=== PATIENT | female | born 1990 | race Caucasian/White ===

== ENCOUNTER 2020-08-03 00:37 | Emergency (ER) | payer BC ==
[2020-08-03 00:47] VITALS: TEMP 98.7
[2020-08-03 01:49] LABS: Basophils # (A) 0.1 k/uL (0-0.2); Basophils % (A) 1 %; Eosinophils # (A) 0.3 k/uL (0-0.7); Eosinophils % (A) 3 %; HCT 40.9 % (34.0-46.0); Lymphocytes # (A) 2.7 k/uL (1.0-4.8); Lymphocytes % (A) 26 %; MCH 25.4 pg (25.0-35.0); MCHC 31.7 g/dL (31.0-37.0); MCV 80.2 fL (80.0-100.0); Mean Platelet Volume 7.1; Monocytes # (A) 0.4 k/uL (0-1.0); Monocytes % (A) 4 %; Neutrophils # (A) 6.9 k/uL (1.3-7.7); Neutrophils % (A) 66 %; Platelet Count 348 k/uL (150-450); RDW 13.9 % (11.5-15.5); WBC 10.6 k/uL (3.8-10.6)
[2020-08-03 01:54] LABS: Appearance,Urine Cloudy (Clear); Bacteria,Urine Few /hpf; Bilirubin,Urine Negative (Negative); Blood,Urine Negative (Negative); Color,Urine Yellow; Glucose,Urine (UA) Negative (Negative); Ketones,Urine 1+ (Negative); Leukocyte Esterase,Urine Small (Negative); Mucus,Urine Many /hpf; Nitrite,Urine Positive (Negative); Protein,Urine 1+ (Negative); RBC,Urine 6 /hpf (0-5); Squamous Epithelial Cell,Urine 23 /hpf (0-4); Urobilinogen,Urine <2.0 mg/dL (<2.0); WBC,Urine 10 /hpf (0-5)
[2020-08-03 02:02] LABS: ALT 19 U/L (4-34); AST 25 U/L (14-36); African American GFR (CKD) >90 (>60 ml/min/1.73 sqM); Albumin 4.3 g/dL (3.5-5.0); Alkaline Phosphatase 66 U/L (38-126); Anion Gap 8 mmol/L; Blood Urea Nitrogen 11 mg/dL (7-17); Calcium 9.5 mg/dL (8.4-10.2); Carbon Dioxide 25 mmol/L (22-30); Chloride 104 mmol/L (98-107); Glucose 92 mg/dL (74-99); Lipase 43 U/L (23-300); Non-African American GFR(CKD) >90 (>60 ml/min/1.73 sqM); Sodium 137 mmol/L (137-145); Total Bilirubin 0.5 mg/dL (0.2-1.3); Total Protein 7.4 g/dL (6.3-8.2)
--- NOTE | 2020-08-03 02:58 | CT ---
EXAM: CT Abdomen and Pelvis Without Intravenous Contrast CLINICAL HISTORY: ITS.REASON CT Reason: RLQ pain TECHNIQUE: Axial computed tomography images of the abdomen and pelvis without intravenous contrast. CTDI is 10.77 mGy and DLP is 565.7 mGy-cm. This CT exam was performed using one or more of the following dose reduction techniques: automated exposure control, adjustment of the mA and/or kV according to patient size, and/or use of iterative reconstruction technique. COMPARISON: No relevant prior studies available. FINDINGS: Limitations: Evaluation of the abdominal viscera is limited without contrast. Lung bases: No acute findings. ABDOMEN: Liver: Unremarkable. Gallbladder and bile ducts: Dense material in the gallbladder. Pancreas: Unremarkable. Spleen: Unremarkable. Adrenals: Unremarkable. Kidneys and ureters: No obstructing stones. No hydronephrosis. Stomach and bowel: Mild wall thickening of the right colon with mild pericolic stranding raising possibility of colitis. Fluid and air in the small bowel, query ileus or enteritis. PELVIS: Appendix: Visualized portions of the appendix appear normal caliber. Mild adjacent stranding/fluid, may be related to colonic or pelvic process. Bladder: Mildly thickened underdistended bladder, may be reactive. Reproductive: Ill-defined adnexal low attenuation, measuring up to 4 cm on the right, may be ovarian. There is pelvic stranding and dense free fluid, concerning for hemorrhagic or proteinaceous material. ABDOMEN and PELVIS: Intraperitoneal space: No free air Bones/joints: L5 pars defects. Soft tissues: Small fat-containing umbilical hernia. Vasculature: Unremarkable. Lymph nodes: Unremarkable. IMPRESSION: 1. Ill-defined adnexal low attenuation with pelvic stranding and dense free fluid, concerning for hemorrhagic or proteinaceous material. Correlate clinically to exclude possibility of ruptured ectopic . Differential considerations include ruptured hemorrhagic cyst, PID/TOA, or other etiology. Ultrasound may be considered if indicated. 2. Wall thickening of the right colon with mild pericolic stranding raising possibility of colitis. 3. Mildly thickened underdistended bladder, may be reactive.
[2020-08-03] MEDS ORDERED: cefTRIAXone IN SWFI 1,000 MG/10 ML SYRINGE IVP STA (03:10)
--- NOTE | 2020-08-03 03:13 | ED ---
Abdominal Pain HPI - General Chief Complaint: Abdominal Pain Stated Complaint: Abdominal Pain Time Seen by Provider: 08/03/20 01:06 Source: patient Limitations: no limitations - History of Present Illness Initial Comments: 30-year-old male patient presents to the emergency department today for evaluation of right lower quadrant abdominal pain. Patient states she was taking a shower this evening the pain started suddenly. States she had sharp stabbing pain to the right lower abdomen. Patient states she did take some ibuprofen and Tylenol took a nap. When she woke up the pain was still present though better. Denies any recent fever or chills. Denies hematuria, dysuria, urinary frequency, urinary urgency. Denies any abnormal vaginal bleeding or discharge. Denies chance of . Denies concern for sexually transmitted infections. Denies any history of abdominal surgeries. Patient denies any recent rash, cough, shortness of breath, chest pain, diarrhea, constipation, back pain, numbness, tingling, dizziness, weakness, headache, visual changes, or any other complaints. - Related Data Previous Rx's Medication Instructions Recorded Cephalexin [Keflex] 500 mg PO Q6H #40 cap 08/03/20 Allergies Allergy/AdvReac Type Severity Reaction Status Date / Time No Known Allergies Allergy Verified 08/03/20 00:47 Review of Systems ROS Statement: Those systems with pertinent positive or pertinent negative responses have been documented in the HPI. ROS Other: All systems not noted in ROS Statement are negative. Past Medical History Past Medical History: No Reported History History of Any Multi-Drug Resistant Organisms: None Reported Past Surgical History: No Surgical Hx Reported Past Psychological History: ADD/ADHD Smoking Status: Never smoker Past Alcohol Use History: Rare Past Drug Use History: Marijuana General Exam Limitations: no limitations General appearance: alert, in no apparent distress, other (This is a well- developed, well-nourished adult female patient in no acute distress. Vital signs upon presentation are temperature 98.7F, pulse 71, respirations 18, blood pressure 125/71, pulse ox 97% on room air.) Eye exam: Present: normal appearance, PERRL, EOMI. Absent: scleral icterus, conjunctival injection, periorbital swelling ENT exam: Present: normal exam, normal oropharynx, mucous membranes moist Respiratory exam: Present: normal lung sounds bilaterally. Absent: respiratory distress, wheezes, rales, rhonchi, stridor Cardiovascular Exam: Present: regular rate, normal rhythm, normal heart sounds. Absent: systolic murmur, diastolic murmur, rubs, gallop, clicks GI/Abdominal exam: Present: soft, tenderness (Right lower quadrant), normal bowel sounds. Absent: distended, guarding, rebound, rigid Back exam: Present: normal inspection. Absent: CVA tenderness (R), CVA tender ness (L) Neurological exam: Present: alert, oriented X3, CN II-XII intact Psychiatric exam: Present: normal affect, normal mood Skin exam: Present: warm, dry, intact, normal color. Absent: rash Course Vital Signs 08/03/20 08/03/20 00:44 03:27 Temperature 98.7 F Pulse Rate 71 78 Respiratory 18 16 Rate Blood Pressure 125/71 120/72 O2 Sat by Pulse 97 97 Oximetry Medical Decision Making - Medical Decision Making 30 year-old female patient presents for sudden onset right lower quadrant abdominal pain. Physical examination reveals right lower quadrant abdominal tenderness. Labs reviewed and revealed normal white blood cell count. Evidence for UTI. CT abdomen pelvis obtained and showed hyperdense fluid in the pelvis with differentials including ruptured hemorrhagic cyst, TOA/PID, or ruptured ectopic. Patient has negative hCG, normal WBC count, no fever so most likely diagnosis is ruptured hemorrhagic cyst. She also adamantly denied concern for STI, states she is in monogamous relationship. She also had evidence for colitis. We started on antibiotics for UTI. Given pain medication. 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 Return parameters were discussed in detail. She is instructed to return especially develops any fever, worsening pain, or vomiting unable to hold down medications. She verbalizes understanding and agrees with this plan. Case discussed with my attending Dr. Urrutia. - Lab Data Result diagrams: 08/03/20 01:35 08/03/20 01:35 Lab Results 08/03/20 08/03/20 08/03/20 Range/Units 01:35 01:35 01:35 WBC 10.6 (3.8-10.6) k/uL RBC 5.10 (3.80-5.40) m/uL Hgb 13.0 (11.4-16.0) gm/dL Hct 40.9 (34.0-46.0) % MCV 80.2 (80.0-100.0) fL MCH 25.4 (25.0-35.0) pg MCHC 31.7 (31.0-37.0) g/dL RDW 13.9 (11.5-15.5) % Plt Count 348 (150-450) k/uL MPV 7.1 Neutrophils % 66 % Lymphocytes % 26 % Monocytes % 4 % Eosinophils % 3 % Basophils % 1 % Neutrophils # 6.9 (1.3-7.7) k/uL Lymphocytes # 2.7 (1.0-4.8) k/uL Monocytes # 0.4 (0-1.0) k/uL Eosinophils # 0.3 (0-0.7) k/uL Basophils # 0.1 (0-0.2) k/uL Sodium 137 (137-145) mmol/L Potassium 4.0 (3.5-5.1) mmol/L Chloride 104 (98-107) mmol/L Carbon Dioxide 25 (22-30) mmol/L Anion Gap 8 mmol/L BUN 11 (7-17) mg/dL Creatinine 0.61 (0.52-1.04) mg/dL Est GFR (CKD-EPI)AfAm >90 (>60 ml/min/1.73 sqM) Est GFR (CKD-EPI)NonAf >90 (>60 ml/min/1.73 sqM) Glucose 92 (74-99) mg/dL Plasma Lactic Acid Roni (0.7-2.0) mmol/L Calcium 9.5 (8.4-10.2) mg/dL Total Bilirubin 0.5 (0.2-1.3) mg/dL AST 25 (14-36) U/L ALT 19 (4-34) U/L Alkaline Phosphatase 66 (38-126) U/L Total Protein 7.4 (6.3-8.2) g/dL Albumin 4.3 (3.5-5.0) g/dL Lipase 43 (23-300) U/L Urine Color Yellow Urine Appearance Cloudy H (Clear) Urine pH 6.0 (5.0-8.0) Ur Specific Wade 1.050 H (1.001-1.035) Urine Protein 1+ H (Negative) Urine Glucose (UA) Negative (Negative) Urine Ketones 1+ H (Negative) Urine Blood Negative (Negative) Urine Nitrite Positive H (Negative) Urine Bilirubin Negative (Negative) Urine Urobilinogen <2.0 (<2.0) mg/dL Ur Leukocyte Esterase Small H (Negative) Urine RBC 6 H (0-5) /hpf Urine WBC 10 H (0-5) /hpf Ur Squamous Epith Cells 23 H (0-4) /hpf Urine Bacteria Few H (None) /hpf Urine Mucus Many H (None) /hpf Urine HCG, Qual (Not Detectd) 08/03/20 08/03/20 Range/Units 01:35 01:35 WBC (3.8-10.6) k/uL RBC (3.80-5.40) m/uL Hgb (11.4-16.0) gm/dL Hct (34.0-46.0) % MCV (80.0-100.0) fL MCH (25.0-35.0) pg MCHC (31.0-37.0) g/dL RDW (11.5-15.5) % Plt Count (150-450) k/uL MPV Neutrophils % % Lymphocytes % % Monocytes % % Eosinophils % % Basophils % % Neutrophils # (1.3-7.7) k/uL Lymphocytes # (1.0-4.8) k/uL Monocytes # (0-1.0) k/uL Eosinophils # (0-0.7) k/uL Basophils # (0-0.2) k/uL Sodium (137-145) mmol/L Potassium (3.5-5.1) mmol/L Chloride (98-107) mmol/L Carbon Dioxide (22-30) mmol/L Anion Gap mmol/L BUN (7-17) mg/dL Creatinine (0.52-1.04) mg/dL Est GFR (CKD-EPI)AfAm (>60 ml/min/1.73 sqM) Est GFR (CKD-EPI)NonAf (>60 ml/min/1.73 sqM) Glucose (74-99) mg/dL Plasma Lactic Acid Roni 0.6 L (0.7-2.0) mmol/L Calcium (8.4-10.2) mg/dL Total Bilirubin (0.2-1.3) mg/dL AST (14-36) U/L ALT (4-34) U/L Alkaline Phosphatase (38-126) U/L Total Protein (6.3-8.2) g/dL Albumin (3.5-5.0) g/dL Lipase (23-300) U/L Urine Color Urine Appearance (Clear) Urine pH (5.0-8.0) Ur Specific Wade (1.001-1.035) Urine Protein (Negative) Urine Glucose (UA) (Negative) Urine Ketones (Negative) Urine Blood (Negative) Urine Nitrite (Negative) Urine Bilirubin (Negative) Urine Urobilinogen (<2.0) mg/dL Ur Leukocyte Esterase (Negative) Urine RBC (0-5) /hpf Urine WBC (0-5) /hpf Ur Squamous Epith Cells (0-4) /hpf Urine Bacteria (None) /hpf Urine Mucus (None) /hpf Urine HCG, Qual Not Detected (Not Detectd) - Radiology Data Radiology results: report reviewed, image reviewed CT abdomen and pelvis is obtained. Report reviewed in its entirety. Impression by Dr. Navarrete shows ill-defined adnexal low attenuation with pelvic stranding and density free fluid, concerning for hemorrhagic or proteinaceous material. Correlate clinically to exclude possibly a ruptured ectopic . Differential considerations included ruptured hemorrhagic cyst, PID/TOA, or other etiology. Wall thickening of the right colon with mild pericolic stranding wheezing possibility of colitis. Mildly thickened under distended bladder, may be reactive. Disposition Clinical Impression: Ruptured ovarian cyst, Colitis, UTI (urinary tract infection) Disposition: HOME SELF-CARE Condition: Good Instructions (If sedation given, give patient instructions): Ovarian Cyst (ED), Urinary Tract Infection in Women (ED), Colitis (ED) Additional Instructions: Complete antibiotic prescription in full. 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 Return to the emergency department for any new, worsening, or concerning symptoms. Prescriptions: Cephalexin [Keflex] 500 mg PO Q6H #40 cap Is patient prescribed a controlled substance at d/c from ED?: No Referrals: None,Stated [Primary Care Provider] - 1-2 days Time of Disposition: 03:12
[2020-08-03 03:28] VITALS: BP 120/72; PULSE 78; RESP 16
== END 2020-08-03 03:28 | disposition home or self-care (01) ==
LOC: EC 00:37
DX: N83.201 Unspecified ovarian cyst, right side (principal); N39.0 Urinary tract infection, site not specified; K52.9 Noninfective gastroenteritis and colitis, unspecified
CPT/HCPCS: 36415; 80053; 83605; 83690; 85025; 81001; 81025; 74176; 99284; 96374; J0696